=== PATIENT | female | born 1955 | race Caucasian/White ===

== ENCOUNTER → 2018-12-28 | Outpatient (CLI) | payer MEDICARE, OTHER | END | disposition home or self-care (01) | LOC: CFH 14:06 | PROVIDERS: ATTEND Obstetrics & Gynecology | DX: R92.2 Inconclusive mammogram (principal); Z80.3 Family history of malignant neoplasm of breast | CPT/HCPCS: 77065; G0279 ==

== ENCOUNTER 2019-09-18 21:11 | Emergency (ER) | payer MEDICARE, OTHER ==
[~2019-09-18] VITALS: Ht 162.6 cm; Wt 66.7 kg
--- NOTE | 2019-09-18 21:28 | NUR ---
FIRST CONTACT WITH PT. PT SITTING UP IN [place] NOTED. PWD. PT REPORTS L CHEST "DISCOMFORT" ONSET AT 1930 THAT WRAPS TO LEFT AXILLA. PAIN WORSENS WITH DEEP BREATHING. DENIES PRODUCTIVE COUGH/FEVER/N/V/DIAPHORESIS. DENIES RECENT TRAUMA OR INJURY. HX OF PVC'S, "IN MY TWENTIES. I THINK I GREW OUT OF THEM". DENIES PULM/CARDIAC HX BP/SPO2/ECG MONITORING IN PLACE. NSR ON MONITOR. FAMILY AT BEDSIDE. AWAITING ORDERS.
[2019-09-18 22:07] LABS: BASOPHILS # (AUTO) 0.04 x10^3/uL (0-0.1); BASOPHILS % (AUTO) 1 % (0-1); EOSINOPHILS # (AUTO) 0.18 x10^3/uL (0-0.4); EOSINOPHILS % (AUTO) 3 % (1-7); LYMPHOCYTES # (AUTO) 2.49 x10^3/uL (1-3.4); LYMPHOCYTES % (AUTO) 48 % (22-44); MD NO; MEAN CORPUSCULAR HEMOGLOBIN 31.7 pg (27.0-34.8); MEAN CORPUSCULAR HGB CONC 34.5 g/dL (32.4-35.8); MEAN CORPUSCULAR VOLUME 91.9 fL (80-100); MEAN PLATELET VOLUME 8.6 fL (7.4-10.4); MONOCYTES # (AUTO) 0.57 x10^3/uL (0.2-0.8); MONOCYTES % (AUTO) 11 % (2-9); NEUTROPHILS % (AUTO) 37 % (42-75); PLATELET COUNT 242 x10^3/uL (130-400); RED BLOOD COUNT 4.22 x10^6/uL (3.82-5.3); RED CELL DISTRIBUTION WIDTH 12.3 % (9.6-15.2)
[2019-09-18 22:08] VITALS: BP 124/56
[2019-09-18 22:13] LABS: ALANINE AMINOTRANSFERASE 29 U/L (12-78); ALBUMIN 3.6 g/dL (3.4-5.0); ANION GAP 6 mmol/L (5-15); CALCIUM 9.1 mg/dL (8.5-10.1); CHLORIDE 109 mmol/L (98-107); CREATININE 0.98 mg/dL (0.55-1.02)
[2019-09-18 22:18] LABS: ALKALINE PHOSPHATASE 71 U/L (45-117); BILIRUBIN,TOTAL 0.2 mg/dL (0.2-1.0); TROPONIN I < 0.015 ng/mL (0.000-0.045)
--- NOTE | 2019-09-18 22:27 | NUR ---
PT RESTING COMFORTABLY IN GURNEY, NAD NOTED. CHART UP FOR RECHECK.
--- NOTE | 2019-09-18 22:45 | NUR ---
POC IS DC. PT OFF MONITORING AND ALLOWED TO DRESS. AWAITING DC PAPERWORK
--- NOTE | 2019-09-18 23:03 | NUR ---
DC EDUCATION PROVIDED, PT DEMONSTRATES UNDERSTANDING. PT AMBULATED STEADILY TO DC WITH RN AND SO. SO TO TRANSPORT PT HOME
== END 2019-09-18 23:05 | disposition home or self-care (01) ==
LOC: ED 22:07
DX: R00.2 Palpitations (principal); R07.89 Other chest pain; I45.10 Unspecified right bundle-branch block
CPT/HCPCS: 36415; 71045; 80053; 83735; 84443; 84484; 85025; 93005; 99284

== ENCOUNTER 2020-05-27 06:50 | Emergency (ER) | payer MEDICARE, OTHER ==
[~2020-05-27] VITALS: Ht 162.6 cm; Wt 66.8 kg
--- NOTE | 2020-05-27 07:15 | NUR ---
PATIENT ARRIVES TO ER TEARFUL IN PAIN THAT HER LEFT HAND HURTS FROM THUMB TO WRIST. SHE HAS A HISTORY OF ARTHRITIS AND ITS BEEN FLARING UP LAST THREE WEEKS....BUT LAST NIGHT ITS GOTTEN EXTREMELY WORSE.
[2020-05-27] MEDS ORDERED: KETOROLAC 30 MG/1 ML ONE (07:30)
[2020-05-27] MEDS ORDERED: KETOROLAC 30 MG/1 ML IM ONE (07:30)
[2020-05-27] MEDS ORDERED: HYDROcodone/APAP 5/325 TABLET PO ONE (07:30)
[2020-05-27] MEDS ORDERED: HYDROcodone/APAP 5/325 TABLET ONE (07:31)
[2020-05-27 08:27] LABS: BASOPHILS % (AUTO) 1 % (0-1); EOSINOPHILS % (AUTO) 2 % (1-7); LYMPHOCYTES % (AUTO) 25 % (22-44); MEAN CORPUSCULAR HEMOGLOBIN 30.2 pg (27.0-34.8); MEAN PLATELET VOLUME 8.6 fL (7.4-10.4); MONOCYTES % (AUTO) 8 % (2-9); NEUTROPHILS % (AUTO) 64 % (42-75); PLATELET COUNT 264 x10^3/uL (130-400); RED BLOOD COUNT 4.58 x10^6/uL (3.82-5.3); RED CELL DISTRIBUTION WIDTH 13.6 % (9.6-15.2)
[2020-05-27 08:37] LABS: MD NO
[2020-05-27 08:38] LABS: ALBUMIN 3.5 g/dL (3.4-5.0); ANION GAP 0 mmol/L (5-15); CALCIUM 9.5 mg/dL (8.5-10.1); CHLORIDE 113 mmol/L (98-107); CREATININE 0.83 mg/dL (0.55-1.02)
--- NOTE | 2020-05-27 08:39 | NUR ---
patient states pain improved. now 6 of 10
[2020-05-27 09:06] VITALS: BP 122/70
== END 2020-05-27 09:08 | disposition home or self-care (01) ==
LOC: ED 08:00
DX: M19.032 Primary osteoarthritis, left wrist (principal)
CPT/HCPCS: 29125; 36415; 73110; 73130; 80048; 82040; 84550; 85025; 96372; 99284; J1885

== ENCOUNTER → 2020-05-30 | Outpatient (CLI) | payer MEDICARE, OTHER | END | disposition home or self-care (01) | LOC: STAR 11:04 | PROVIDERS: ATTEND Orthopaedic Surgery | DX: Z01.812 Encounter for preprocedural laboratory examination (principal); Z20.828 Contact with and (suspected) exposure to other viral communicable diseases | CPT/HCPCS: 36415; 87635 ==

== ENCOUNTER 2020-06-04 14:10 | Day surgery (SDC) | payer MEDICARE, OTHER ==
[~2020-06-04] VITALS: Ht 162.6 cm; Wt 63.8 kg
[~2020-06-04 14:10] MED LIST: CEFAZOLIN 1,000 MG ONE; METOCLOPRAMIDE 5 MG/ML, 2ML ONE; ONDANSETRON 2MG/ML, 2ML ONE
[2020-06-04] MEDS ORDERED: CHLORHEXIDINE 15 ML UDC MM ONE (15:00)
[2020-06-04] MEDS ORDERED: LIDOCAINE-MPF 1%, 2ML INFIL ONE (15:00)
[2020-06-04] MEDS ORDERED: LACTATED RINGERS 1,000 ML IV SCH (15:00)
[2020-06-04 15:07] VITALS: BP 121/76
[2020-06-04] MEDS ORDERED: EPINEPHRINE 1 MG/ML, 1ML ONE (16:30)
[2020-06-04] MEDS ORDERED: BUPIVACAINE/PF 0.5% ONE (16:30)
[2020-06-04] MEDS ORDERED: ROCURONIUM 10MG/ML,5ML ONE (16:36)
[2020-06-04] MEDS ORDERED: PROPOFOL 10 MG/ML, 20ML ONE (16:36)
[2020-06-04] MEDS ORDERED: GLYCOPYRROLATE 0.2MG/1ML, 5ML ONE (16:36)
[2020-06-04] MEDS ORDERED: FENTANYL PF 250 MCG/5ML ONE (16:36)
[2020-06-04] MEDS ORDERED: LIDOCAINE-MPF 2% ,5ML ONE (16:36)
[2020-06-04] MEDS ORDERED: MIDAZOLAM 1 MG/ML, 2ML ONE (16:36)
[2020-06-04] MEDS ORDERED: DEXAMETHASONE 4 MG/ML, 1ML ONE (16:36)
[2020-06-04] MEDS ORDERED: SCOPOLAMINE 1MG PATCH TD ONE (16:49)
[2020-06-04] MEDS ORDERED: METOCLOPRAMIDE 5 MG/ML, 2ML IVPush PRN (17:00)
[2020-06-04] MEDS ORDERED: MIDAZOLAM 1 MG/ML, 2ML IV PRN (17:00)
[2020-06-04] MEDS ORDERED: KETOROLAC 30 MG/1 ML IVPush PRN (17:00)
[2020-06-04] MEDS ORDERED: DIPHENHYDRAMINE 50 MG/ML, 1ML IVPush PRN (17:00)
[2020-06-04] MEDS ORDERED: ALBUTEROL/IPRATROPIUM 2.5MG/0.5MG, 3 ML NPPB PRN (17:00)
[2020-06-04] MEDS ORDERED: HYDROmorphone 1 MG/ML, 1ML INJ IVPush PRN (17:00)
[2020-06-04] MEDS ORDERED: EPHEDRINE 50 MG/ML, 1ML IM PRN (17:00)
[2020-06-04] MEDS ORDERED: HALOPERIDOL 5 MG/ML IV PRN (17:00)
[2020-06-04] MEDS ORDERED: MEPERIDINE/PF 25MG/0.5ML IVPush PRN (17:00)
[2020-06-04] MEDS ORDERED: LABETALOL 5MG/ML, 20ML IV PRN (17:00)
[2020-06-04] MEDS ORDERED: EPHEDRINE 50 MG/ML, 1ML IVPush PRN (17:00)
[2020-06-04] MEDS ORDERED: ONDANSETRON 2MG/ML, 2ML IVPush PRN (17:00)
[2020-06-04] MEDS ORDERED: ACETAMINOPHEN 325 MG TABLET PO PRN (17:00)
[2020-06-04] MEDS ORDERED: DIAZEPAM 5 MG/ML, 2ML IVPush PRN (17:00)
[2020-06-04] MEDS ORDERED: hydrALAzine 20 MG/ML, 1ML IV PRN (17:00)
[2020-06-04] MEDS ORDERED: HYDROcodone/APAP 7.5-325MG/15ML UDC PO PRN (17:00)
[2020-06-04] MEDS ORDERED: OXYcodone 5 MG/5 ML ORAL.SOL UDC PO PRN (17:00)
[2020-06-04] MEDS ORDERED: LORazepam 2 MG/ML, 1ML IVPush PRN (17:00)
[2020-06-04] MEDS ORDERED: METHOCARBAMOL 1,000 MG in DEXTROSE 5% 100 ML IV PRN (17:00)
[2020-06-04] MEDS ORDERED: FENTANYL PF 100 MCG/2ML IV PRN (17:00)
[2020-06-04] MEDS ORDERED: MEPERIDINE/PF 25MG/ML,1ML ONE (18:14)
[2020-06-04] MEDS ORDERED: KETOROLAC 30 MG/1 ML ONE (18:26)
[2020-06-04] MEDS ORDERED: OXYC5TAB3 PO (20:04)
[2020-06-04] MEDS ORDERED: ONDANSETRON 2MG/ML, 2ML IV PRN (21:00)
[2020-06-04] MEDS ORDERED: OXYcodone/APAP 5/325MG TABLET PO PRN (21:00)
[2020-06-04] MEDS ORDERED: HYDROmorphone 1 MG/ML, 1ML INJ IM PRN (21:00)
== END 2020-06-04 21:10 | disposition home or self-care (01) ==
LOC: OR 14:10 → 4NE 19:59 → OR 21:10
PROVIDERS: ATTEND Orthopaedic Surgery
DX: M18.12 Unilateral primary osteoarthritis of first carpometacarpal joint, left hand (principal); Z79.899 Other long term (current) drug therapy
CPT/HCPCS: 25310; 25447; 93005; J0171; J0690; J1100; J1885; J2175; J2250; J2405; J2704; J2765; J3010; J7120; G0378

== ENCOUNTER → 2021-03-13 | Outpatient (CLI) | payer MEDICARE, OTHER ==
[~2021-03-13] MED LIST changes: +ASPI81TA45 PO; +ATOR-2 PO; -CEFAZOLIN 1,000 MG ONE; -METOCLOPRAMIDE 5 MG/ML, 2ML ONE; -ONDANSETRON 2MG/ML, 2ML ONE; +OXYC5TAB98 PO; +TICA90TA PO
== END | disposition home or self-care (01) ==
LOC: CFH 10:45
PROVIDERS: ATTEND Nurse Practitioner
DX: Z12.31 Encounter for screening mammogram for malignant neoplasm of breast (principal)
CPT/HCPCS: 77063; 77067